=== PATIENT | male | born 1975 | race Caucasian/White ===

== ENCOUNTER 2021-12-07 10:31 | Day surgery (SDC) | payer OTHER ==
[~2021-12-07] VITALS: Ht 157.5 cm; Wt 79.7 kg
[~2021-12-07 10:31] MED LIST: BUPR15TA PO; KP F1200 PO; LIDOCAINE 2% 100MG/5ML SDV (FOR ANES.) As Ordered ONE; LIPI20TA PO; NO ITAB PO; NS 1,000 ML IV ONE; propofoL 200 MG/20 ML VIAL As Ordered ONE
[2021-12-07 13:01] VITALS: BP 127/75
== END 2021-12-07 13:03 | disposition home or self-care (01) ==
LOC: M OPP 10:31
PROVIDERS: ATTEND Internal Medicine Gastroenterology
DX: Z12.11 Encounter for screening for malignant neoplasm of colon (principal); K64.0 First degree hemorrhoids; Z79.02 Long term (current) use of antithrombotics/antiplatelets; Z79.899 Other long term (current) drug therapy